=== PATIENT | female | born 1990 | race Caucasian/White ===

== ENCOUNTER → 2016-08-09 13:26 | Outpatient (CLI) | payer BC | END | disposition home or self-care (01) | LOC: D.LDO 13:26 | DX: O48.0 Post-term pregnancy (principal); Z3A.40 40 weeks gestation of pregnancy ==

== ENCOUNTER → 2016-08-13 11:15 | Outpatient (CLI) | payer BC | END | disposition home or self-care (01) | LOC: D.LDO 11:15 | DX: O48.0 Post-term pregnancy (principal); Z3A.40 40 weeks gestation of pregnancy ==